=== PATIENT | female | born 1995 | race Caucasian/White ===

== ENCOUNTER 2019-04-17 18:26 | Emergency (ER) | payer OTHER ==
[2019-04-17 18:36] VITALS: BP 108/63; PULSE 83; TEMP 98.6; BMI 31.7
[2019-04-17] MEDS ORDERED: ONDANSETRON *ODT* 4 MG TABLET SL ONE (19:41)
[2019-04-17] MEDS ORDERED: guaiFENesin/D-METHORPHAN HB 10 ML UNIT-DOSE CUPS PO ONE (19:41)
[2019-04-17] MEDS ORDERED: IBUPROFEN 600 MG TABLET (FP) PO ONE (19:49)
[2019-04-17] MEDS ORDERED: ONDANSETRON *ODT* 4 MG TABLET ONE (20:41)
[2019-04-17] MEDS ORDERED: guaiFENesin/D-METHORPHAN HB 10 ML UNIT-DOSE CUPS ONE (20:41)
--- NOTE | 2019-04-17 22:04 | PDOC ---
History of Present Illness - General Chief Complaint: Cold Symptoms Stated Complaint: VOMITING/COUGH Time Seen by Provider: 04/17/19 18:40 History Source: Patient Exam Limitations: No Limitations Past History - Travel Traveled outside of the country in the last 30 days: No Close contact w/someone who was outside of country & ill: No - Past Medical History Allergies/Adverse Reactions: Allergies Allergy/AdvReac Type Severity Reaction Status Date / Time No Known Allergies Allergy Verified 04/17/19 18:33 Home Medications: Ambulatory Orders Guaifenesin Dm [Robitussin Dm -] 10 ml PO Q8H #120 ml 04/17/19 Methylprednisolone [Medrol Dose Devan] 4 mg PO ASDIR #21 tablet 04/17/19 Ondansetron [Zofran Odt -] 4 mg SL TID #10 od.tablet 04/17/19 COPD: No CHF: No DVT: No - Immunization History Immunization Up to Date: Yes - Psycho Social/Smoking Cessation Hx Smoking History: Never smoked Information on smoking cessation initiated: No Hx Alcohol Use: No Drug/Substance Use Hx: No Review of Systems - Review of Systems Able to Perform ROS?: Yes Comments:: 04/17/19 22:50 CONSTITUTIONAL: Present: Fever absent: chills, diaphoresis, generalized weakness, malaise, loss of appetite HEENT: Absent: rhinorrhea, nasal congestion, throat pain, throat swelling, difficulty swallowing, mouth swelling, ear pain, eye pain, visual Changes CARDIOVASCULAR: Absent: chest pain, loss of consciousness, palpitations, irregular heart rate, peripheral edema RESPIRATORY: Present: Cough absent: shortness of breath, dyspnea with exertion, orthopnea, wheezing, stridor, hemoptysis GASTROINTESTINAL: Present: Vomiting absent: abdominal pain, abdominal distension, nausea, diarrhea , constipation, melena, hematochezia GENITOURINARY: Absent: dysuria, frequency, urgency, hesitancy, hematuria, flank pain, genital pain MUSCULOSKELETAL: Absent: myalgia, arthralgia, joint swelling SKIN: Absent: rash, itching, pallor HEMATOLOGIC/IMMUNOLOGIC: Absent: easy bleeding, easy bruising, lymphadenopathy, frequent infections ENDOCRINE: Absent: unexplained weight gain, unexplained weight loss, heat intolerance, cold intolerance NEUROLOGIC: Absent: headache, focal weakness or paresthesias, dizziness, unsteady gait, seizure, mental status changes, bladder or bowel incontinence PSYCHIATRIC: Absent: anxiety, depression, suicidal or homicidal ideation, hallucinations. Is the patient limited Tajik proficient: No *Physical Exam - Vital Signs Last Vital Signs Temp Pulse Resp BP Pulse Ox 98.6 F 83 17 108/63 98 04/17/19 18:33 04/17/19 18:33 04/17/19 18:33 04/17/19 18:33 04/17/19 18:33 - Physical Exam 04/17/19 22:51 GENERAL: Well developed, well nourished. Awake and alert. No acute distress. HEENT: Normocephalic, atraumatic. PERRLA, EOMI. No conjunctival pallor. Sclera are non- icteric. Moist mucous membranes. Oropharynx is clear. NECK: Supple. Full ROM. No JVD. Carotid pulses 2+ and symmetric, without bruits. No thyromegaly. No lymphadenopathy. CARDIOVASCULAR: Regular rate and rhythm. No murmurs, rubs, or gallops. Distal pulses are 2+ and symmetric. PULMONARY: No evidence of respiratory distress. Lungs clear to auscultation bilaterally. No wheezing, rales or rhonchi. ABDOMINAL: Soft. Non-tender. Non-distended. No rebound or guarding. No organomegaly. Normoactive bowel sounds. MUSCULOSKELETAL Normal range of motion at all joints. No bony deformities or tenderness. No CVA tenderness. EXTREMITIES: No cyanosis. No clubbing. No edema. No calf tenderness. SKIN: Warm and dry. Normal capillary refill. No rashes. No jaundice. NEUROLOGICAL: Alert, awake, appropriate. Cranial nerves 2-12 intact. No deficits to light touch and temperature in face, upper extremities and lower extremities. No motor deficits in the in face, upper extremities and lower extremities. Normoreflexic in the upper and lower extremities. Normal speech. Toes are down- going bilaterally. Gait is normal without ataxia. PSYCHIATRIC: Cooperative. Good eye contact. Appropriate mood and affect. ED Treatment Course - ADDITIONAL ORDERS Additional order review: Laboratory Results 04/17/19 20:30 Urine HCG, Qual Negative - RADIOLOGY Radiology Studies Ordered: Category Date Time Status CHEST PA & LAT [RAD] Stat Radiology 04/17/19 21:37 Taken - Medications Given in the ED: ED Medications Discontinued Medications Generic Name Dose Route Start Last Admin Trade Name Freq PRN Reason Stop Dose Admin Guaifenesin 10 ml 04/17/19 19:41 04/17/19 20:39 Robitussin Dm - PO 04/17/19 19:42 10 ml ONCE ONE Administration Ondansetron HCl 4 mg 04/17/19 19:41 04/17/19 20:39 Zofran Odt - SL 04/17/19 19:42 4 mg ONCE ONE Administration Medical Decision Making - Medical Decision Making 04/17/19 22:51 Patient is a 23-year-old female with no past medical history who presents to the ER today for posttussive vomiting and cough for 6 days. She states that her symptoms started last Saturday. She states when her symptoms started she had a fever however that has since resolved. She notes that when she takes a deep breath she needs to cough. She states that she has been coughing so much she has been vomiting. She also notes that she has been vomiting after eating as well. Denies sore throat, earache, chest pain, difficulty breathing, diarrhea and urinary symptoms. Patient denies . A/P: Bronchitis On exam lungs are clear to auscultation bilaterally with no wheezes rales or rhonchi. Patient unable to take a deep breath without coughing. Based on history, likely patient had flu approximately 1 week ago with resolution of fever. Outside the window for Tamiflu We will treat this as a post influenza bronchitis Chest x-ray shows no pneumonia Discharge home with steroids, Robitussin and Zofran and symptomatic relief. Patient to follow-up with her primary care doctor this week I discussed the physical exam findings, ancillary test results and final diagnoses with the patient. I answered all of the patient's questions. The patient was satisfied with the care received and felt comfortable with the discharge plan and treatment plan. The Patient agrees to follow up with the primary care physician/specialist within 24-72 hours. Return precautions were given. Discharge - Discharge Information Problems reviewed: Yes Clinical Impression/Diagnosis: Bronchitis Condition: Stable Disposition: HOME - Admission No - Additional Discharge Information Prescriptions: Guaifenesin Dm [Robitussin Dm -] 10 ml PO Q8H #120 ml Methylprednisolone [Medrol Dose Devan] 4 mg PO ASDIR #21 tablet Ondansetron [Zofran Odt -] 4 mg SL TID #10 od.tablet - Follow up/Referral Referrals: Ari Grey MD [Staff Physician] - - Patient Discharge Instructions Patient Printed Discharge Instructions: DI for Acute Bronchitis Additional Instructions: You have bronchitis Continue taking the prednisone daily for the next 4 days. You may take the Robitussin every 8 hours to help with your cough Take the zofran every 8 hours as needed for nausea and vomiting. Please follow up with your primary care doctor in 1 week if your symptoms are not improving. Return to the emergency department if you have fevers, chills, worsening cough, chest pain, worsening shortness of breath or if you have any changes in your symptoms. - Post Discharge Activity Work/Back to School Note: Back to Work
== END 2019-04-17 22:56 | disposition home or self-care (01) ==
LOC: JERFT 18:26 → JER 18:26 → JERFT 22:56
DX: J40 Bronchitis, not specified as acute or chronic (principal)
CPT/HCPCS: 71046-TC-FY; 84703; 99281-25; Q0162